=== PATIENT | female | born 1965 | race Hispanic/Latino ===

== ENCOUNTER 2018-09-27 20:28 | Inpatient (IN) | payer MEDICARE, BC ==
[2018-09-27 20:28] VITALS: BMI 24.5
[2018-09-27 21:00] LABS: HCG,QUALITATIVE URINE NEGATIVE (NEGATIVE)
[2018-09-27 21:03] LABS: SQUAMOUS EPITHIAL < 1 /hpf (0-5); URINE BILIRUBIN NEGATIVE (NEGATIVE); URINE BLOOD 1+ (NEGATIVE); URINE CLARITY Clear (Clear); URINE COLOR Straw (YELLOW); URINE GLUCOSE (UA) NORMAL (Normal); URINE LEUKOCYTE ESTERASE NEG Leu/uL (Negative); URINE PROTEIN NEGATIVE (NEGATIVE); URINE UROBILINOGEN NORMAL mg/dL (0.2-1.0)
--- NOTE | 2018-09-27 21:05 | C.PDOC ---
History Of Present Illness 53 year old female presents to the emergency department requesting detox from alcohol, last consumed prior to arrival. Patient denies suicidal/homicidal ideation, and offers no other complaints at this time. Time Seen by Provider: 09/27/18 20:53 Chief Complaint (Nursing): Substance Abuse History Per: Patient History/Exam Limitations: no limitations Onset/Duration Of Symptoms: Hrs Current Symptoms Are (Timing): Still Present Suicide/Self Injury Attempted (Context): None Modifying Factor(s): Alcohol Associated Symptoms: denies: Suicidal Thoughts, Suicidal Plan Past Medical History Reviewed: Historical Data, Nursing Documentation, Vital Signs Vital Signs: Last Vital Signs Temp 98.6 F 09/27/18 20:33 Pulse 65 09/27/18 20:33 Resp 18 09/27/18 20:33 BP 122/85 09/27/18 20:33 Pulse Ox 99 09/27/18 20:33 - Medical History PMH: Depression, Hypothyroidism, Seizures Surgical History: No Surg Hx - [facility] Procedures ASPIRAT CURET-POST DELIV (09/03/00) CYSTOSCOPY NEC (03/18/03) ESOPHAGOGASTRODUODENOSCOPY [EGD] W/CLOSED BIOPSY (03/01/05) LAPAROSCOPIC CHOLECYSTECTOMY (06/11/07) LOCAL EXCIS BREAST LES (04/01/07) MRI OF OTHER AND UNSPECIFIED SITES (02/20/05) RETROGRADE PYELOGRAM (03/18/03) SPINAL CANAL INJECT NEC (03/21/98) Family History: States: No Known Family Hx - Social History Hx Tobacco Use: No Hx Alcohol Use: Yes Hx Substance Use: No - Immunization History Hx Tetanus Toxoid Vaccination: No Hx Influenza Vaccination: Yes Hx Pneumococcal Vaccination: No Review Of Systems Except As Marked, All Systems Reviewed And Found Negative. Psych: Positive for: Other (alcohol abuse) Physical Exam - Physical Exam Appears: Non-toxic, No Acute Distress Skin: Warm, Dry Head: Atraumatic, Normacephalic Eye(s): bilateral: Normal Inspection, PERRL, EOMI Nose: Normal Oral Mucosa: Moist Neck: Normal, Supple Chest: Symmetrical, No Tenderness Cardiovascular: Rhythm Regular, No Murmur Respiratory: Normal Breath Sounds, No Rales, No Rhonchi, No Wheezing Gastrointestinal/Abdominal: Soft, No Tenderness Neurological/Psych: Oriented x3, Normal Speech, Normal Cognition ED Course And Treatment - Laboratory Results Result Diagrams: 09/27/18 21:29 09/27/18 21:29 Lab Results: Urine HCG, Qual Negative (NEGATIVE) 09/27/18 20:57 Urine HCG, Qual Negative (NEGATIVE) 09/27/18 20:57 O2 Sat by Pulse Oximetry: 99 (RA) Pulse Ox Interpretation: Normal Medical Decision Making Medical Decision Making: Plan: Drug Screen HCG Qualitative Urine Urinalysis Assessment: Alcohol abuse Disposition Discussed With Dr.: Qiana Oconnor Doctor Will See Patient In The: Hospital Counseled Patient/Family Regarding: Studies Performed, Diagnosis - Disposition Disposition: HOSPITALIZED Disposition Time: 22:57 Condition: FAIR Forms: [employer] (Hong Konger) - Clinical Impression Clinical Impression: Alcohol abuse - Scribe Statement The provider has reviewed the documentation as recorded by the Scribe (Kike Clifton) Provider Attestation: All medical record entries made by the Scribe were at my direction and personally dictated by me. I have reviewed the chart and agree that the record accurately reflects my personal performance of the history, physical exam, medical decision making, and the department course for this patient. I have also personally directed, reviewed, and agree with the discharge instructions and disposition.
[2018-09-27 21:16] LABS: BARBITURATES, UR NEGATIVE (NEGATIVE); BENZODIAZEPINES, UR NEGATIVE (NEGATIVE); OPIATES, UR NEGATIVE (NEGATIVE); PHENCYCLIDINE, UR NEGATIVE (NEGATIVE)
[2018-09-27 21:34] LABS: BASO % 0.7 % (0.0-2.0); EOS % 0.1 % (0.0-4.0); HEMOGLOBIN 14.6 g/dL (11.0-16.0); LYMPH % 18.3 % (20.0-40.0); MEAN CELL VOLUME 88.5 fL (81.0-99.0); MEAN CORPUSCULAR HEMOGLOBIN 28.6 pg (27.0-31.0); MEAN CORPUSCULAR HGB CONC 32.3 g/dL (33.0-37.0); MEAN PLATELET VOLUME 8.2 fL (7.2-11.7); MONO # 0.5 K/uL (0.0-0.8); MONO % 9.8 % (0.0-10.0); NEUT # 3.8 K/uL (1.8-7.0); NEUT % 71.1 % (50.0-75.0); NRBC % 0.1 % (0.0-2.0); RBC 5.1 Mil/uL (3.80-5.20); RED CELL DISTRIBUTION WIDTH 18.1 % (11.5-14.5); WHITE BLOOD COUNT 5.3 K/uL (4.8-10.8)
[2018-09-27 21:46] LABS: PROTHROMBIN TIME 10.8 SECONDS (9.7-12.2)
[2018-09-27 21:50] LABS: ALB/GLOB RATIO 1.5 (1.0-2.1); ALBUMIN 4.5 g/dL (3.5-5.0); ALT/SGPT 20 U/L (9-52); AST/SGOT 38 U/L (14-36); BLOOD UREA NITROGEN 8 mg/dL (7-17); CALCIUM 9.4 mg/dl (8.6-10.4); GFR NON-AFRICAN AMERICAN > 60
[2018-09-27] MEDS: Potassium Chloride 20 mEq ER Tab PO SCH (23:28)
[2018-09-27] MEDS ORDERED: Potassium Chloride 20 mEq ER Tab PO ONE (23:28)
--- NOTE | 2018-09-28 01:05 | PCM.BM ---
<Freddy Sharpe - Last Filed: 09/28/18 01:03> Treatment Plan Problems - Problems identified on initial assessmt Problem 1 Date Initiated: 09/28/18 Time Initiated: 01:04 Assessment reference: NA Status: Active Priority: 1 Comment: Alcohol abuse Treatment assets and liabiliti Patient Assests: cooperative, ADL independent, good support system Patient Liabilities: substance abuse, medical problems - Milieu Protocol Maintain good personal hygiene: daily Encourage regular showers, daily Remind patient to perform daily oral care Conduct patient checks and document Observation sheet: Q15 minutes Maintain personal safety: every shift Educate patient to report safety concerns to staff, every shift Monitor environment for contraband/sharps Medication safety: Monitor for expected outcome, potential side effects: every shift, Assess barriers to learning: every shift, Assess readiness for medication education: every shift <Connie Muller - Last Filed: 09/30/18 11:46> Family Contact Family contact name: daughter Family contacted how many times per week?: 2 - Goals for Treatment Patient goals for treatment: Complete detox and transition to outpatient therapy program. Discharge/Continuing Care - Education Needs Education Needs: Family Diagnosis/Disease Process, Family Community resources, Patient Medication, Patient Diagnosis/Disease Process, Patient Coping Skills, Patient Anger Management skills, Patient Placement options, Patient Community resources - Discharge Discharge Criteria: No longer exhibiting s/s of withdrawal, Reduction of target symptoms Discharge to:: Home, With Family - Treatment Team Participation Patient/Family/SO Statement: 09/30/18 11:46 "I'll go to outpatient I guess." Discussed with Family/SO: No Was Patient/Family/SO present at Treatment Team Meeting: Yes
[2018-09-28] MEDS: Levothyroxine 125 MCG TAB PO SCH (06:40)
[2018-09-28] MEDS: Potassium Chloride 20 mEq ER Tab PO SCH (09:32)
--- NOTE | 2018-09-28 10:21 | PCM.PSYCH ---
Initial Psychiatric Evaluation - Initial Psychiatric Evaluation Type of Admission: Voluntary Legal Status: Capacity Chief Complaint (in patient's own words): "I am very anxious" History of Present Illness and Precipitating Events: The pt is seen, chart reviewed, case discussed. Her sister is contacted with her permission. She is a 53 y/o single female, living alone, no child She is here for alcohol detox Pt is a poor historian; evasive, secretive and minimizes her condition, i.e. "I only drank 2 days" Her sister reported that the pt had been drinking for many years and had detox and rehab before, last time was at [facility]. She has been drinking more heavily lately and at [facility] [place] [place] her BAL was above 300, and they still "sent her home bc they don't have a detox." Here, too, she scored close to 200 and was withdrawing significantly (P>100) Her sister also said that the pt had been driving while intoxicated, stating she would rather b/c of this ongoing alcohol problem. Pt also admits to being "very anxious" but denies feeling depresed as much, and denies SI. No psychosis or kennedy elicited Past psych hx: No admissions or suicide attempts but she has had depression and anxiety d/o Medical hx: Multiple conditions, whcih are neglected b/c of her alcoholism, such as hypothyroidism, disc problems. Family psych hx: Anxiety Current Medications: Active Medications Generic Name Dose Route Start Last Admin Trade Name Freq PRN Reason Stop Dose Admin Hydroxyzine HCl 50 mg 09/27/18 23:52 Atarax PO Q6H PRN Anxiety Levothyroxine Sodium 125 mcg 09/28/18 06:30 09/28/18 06:40 Synthroid PO 125 mcg DAILY@0630 SHAHAB Administration Lorazepam 1 mg 09/28/18 09:15 09/28/18 09:30 Ativan PO 1 mg Q4 PRN Administration Anxiety Nicotine 1 patch 09/28/18 10:00 09/28/18 09:30 Nicoderm Cq TD 1 patch DAILY SHAHAB Administration Potassium Chloride 40 meq 09/28/18 10:00 09/28/18 09:32 K-Dur 20 Meq Er Tab PO 40 meq DAILY SHAHAB Administration Trazodone HCl 50 mg 09/27/18 23:45 09/28/18 00:13 Desyrel PO 50 mg HS SHAHAB Administration Past Psychiatric History - Past Psychiatric History Previous Treatment History: None Pertinent Medical Hx (Current Medical&Sleep Prob, Allergies): Allergies Allergy/AdvReac Type Severity Reaction Status Date / Time phenol [From Chloraseptic] Allergy Verified 09/27/18 20:40 B12/Levomefolate Calcium/B-6 [Folbic Rf 2 mg-1.13 mg-25 mg] 1 tab PO DAILY 09/02 04/19 Celecoxib 100 mg PO DAILY 09/28/18 Ferrous Sulfate 325 mg PO DAILY 09/28/18 Levothyroxine [Synthroid] 125 mcg PO DAILY 09/28/18 Sumatriptan Succinate 25 mg PO DAILY 09/28/18 Vitamin D3/Vitamin K2 (Mk4) [K2 Plus D3 Tablet] 1 each PO DAILY 09/28/18 hydrOXYzine HCl [Atarax] 25 mg PO Q8H 09/28/18 Review of Systems - Psychiatric Psychiatric: Abnormal Sleep Pattern, Anhedonia, Anxiety, Behavioral Changes, Change in Appetite, Depression, Difficulty Concentrating, Mood Swings, Panic Attacks. absent: Hallucinations, Homicidal Ideation, Paranoia, Suicidal Ideation Mental Status Examination - Personal Presentation Personal Presentation: Looks older than stated age - Affect Affect: Blunted - Motor Activity Motor Activity: Calm - Reliability in Providing Information Reliability in Providing Information: Fair - Speech Speech: Organized - Mood Mood: Depressed, Anxious - Formal Thought Process Formal Thought Process: No Impairment - Cognitive Functions Orientation: Person, Place, Situation Sensorium: Alert Attention/Concentration: Easily distracted Estimate of Intelligence: Average Judgement: Imparied, as evidence by: Poor judgement (minimizing sxs) Memory: Recent intact, as evidence by: Ability to recall events of the day, Remote intact, as evidenced by: Abilit to recall sig. life events - Risk Risk: Withdrawal, Diminished functioning - Strength & Assets Inventory Strength & Assets Inventory: Cooperative - Limitations Limitations: Other DSM 5 DX - DSM 5 DSM 5 Diagnosis: Alcohol withdrawal Alcohol use d/o - severe NELSON Depressive d/o - unspecified - Recommended/Plan of Treatment Treatment Recommendations and Plan of Treatment: Taper with librium Lexapro for NELSON and ddepression Gabapentin for augmentation if needed As needed medications All risks, benefits and alternatives of the meds discussed, and the pt agreed and understood. Attend groups and activities Supportive therapy and psychoeducation WA for abstinence CBT for relapse prevention Encourage MAT Refer to rehab or IOP, and self-help groups Teach healthy lifestyle methods, i.e. diet, exercise, meditation Smoking cessation with WA Nicotine patch if needed 34 min Projected ELOS: 4-5 days Prognosis: good w treatment
[2018-09-29] MEDS: Levothyroxine 125 MCG TAB PO SCH (05:46)
[2018-09-29] MEDS: Potassium Chloride 20 mEq ER Tab PO SCH (09:45)
[2018-09-29] MEDS ORDERED: Albuterol HFA 90 mcg/actuation (8 g) INH PRN ×2 (13:17→13:45)
[2018-09-29] MEDS: guaiFENesin 200 mg/10 ml Syrup UD PO PRN ×3 (13:32→21:03)
[2018-09-29 17:48] LABS: ALB/GLOB RATIO 1.5 (1.0-2.1); ALBUMIN 3.9 g/dL (3.5-5.0); ALT/SGPT 20 U/L (9-52); AST/SGOT 23 U/L (14-36); BLOOD UREA NITROGEN 10 mg/dL (7-17); CALCIUM 8.9 mg/dl (8.6-10.4); GFR NON-AFRICAN AMERICAN > 60
[2018-09-30] MEDS: guaiFENesin 200 mg/10 ml Syrup UD PO PRN ×3 (03:24→14:02)
[2018-09-30] MEDS: Levothyroxine 125 MCG TAB PO SCH (06:14)
--- NOTE | 2018-09-30 13:36 | PCM.PYCHPN ---
Psychiatric Progress Note - Psychiatric Progress Note Patient seen today, length of contact: 16 min Patient Chief Complaint: "I don't want to stay too long here" Problems Identified/Issues Discussed: The pt is seen, chart reviewed, case discussed with staff. The pt is compliant with medications and reports no side-effects. Symptoms are improving but needs more time to stabilize. Still anxious and has low insight - thus high relapse risk WI used to increase her motivation to change. Lexapro started for anxiety d/o Pt attends groups and activities. Support given, psycho-education provided. After care discussed. She is interested in IOP Her sister is in touch with us. Her family is very worried about her quitting detox Medication Change: Yes (detox changes daily) Medical Record Reviewed: Yes Mental Status Examination - Cognitive Function Orientation: Person, Place, Situation Memory: Intact Attention: WNL Concentration: Poor Association: WNL Fund of Knowledge: WNL - Mood Mood: Depressed, Anxious - Affect Affect: Blunted - Speech Speech: Appropriate - Formal Thought Process Formal Thought Process: No Impairment - Suicidal Ideation Suicidal Ideation: No - Homicidal Ideation Homicidal Ideation: No Goal/Treatment Plan - Goal/Treatment Plan Need for Continued Stay: Severe depression anxiety, Discharge may exacerbated symptoms, Severe functional impairment Progress Toward Problem(s) and Goals/Treatment Plan: Taper with librium Lexapro for NELSON and depression Gabapentin for augmentation if needed As needed medications All risks, benefits and alternatives of the meds discussed, and the pt agreed and understood. Attend groups and activities Supportive therapy and psychoeducation WI for abstinence CBT for relapse prevention Encourage MAT Refer to rehab or IOP, and self-help groups Teach healthy lifestyle methods, i.e. diet, exercise, meditation Smoking cessation with WI Nicotine patch if needed
--- NOTE | 2018-09-30 13:38 | PCM.PYCHPN ---
Psychiatric Progress Note - Psychiatric Progress Note Patient seen today, length of contact: 17 min Patient Chief Complaint: "I'm not well" Problems Identified/Issues Discussed: The pt is seen, chart reviewed, case discussed with staff. Support and psychoeducation given, CBT and AR used briefly No new symptoms reported, improving slowly and needs more time No SEs from medications, risks discussed. After care discussed Medication Change: Yes (detox changes daily) Medical Record Reviewed: Yes Mental Status Examination - Cognitive Function Orientation: Person, Place, Situation Memory: Intact Attention: WNL Concentration: Poor Association: WNL Fund of Knowledge: WNL - Mood Mood: Depressed, Anxious - Affect Affect: Blunted - Speech Speech: Appropriate - Formal Thought Process Formal Thought Process: No Impairment - Suicidal Ideation Suicidal Ideation: No - Homicidal Ideation Homicidal Ideation: No Goal/Treatment Plan - Goal/Treatment Plan Need for Continued Stay: Severe depression anxiety, Discharge may exacerbated symptoms, Severe functional impairment Progress Toward Problem(s) and Goals/Treatment Plan: Taper with librium Lexapro for NELSON and depression Gabapentin for augmentation if needed As needed medications All risks, benefits and alternatives of the meds discussed, and the pt agreed and understood. Attend groups and activities Supportive therapy and psychoeducation AR for abstinence CBT for relapse prevention Encourage MAT Refer to rehab or IOP, and self-help groups Teach healthy lifestyle methods, i.e. diet, exercise, meditation Smoking cessation with AR Nicotine patch if needed
[2018-09-30 17:42] LABS: FREE T4 1.34 ng/dL (0.78-2.19)
[2018-09-30] MEDS ORDERED: Aluminum Hydroxide/Magnesium Hydroxide Susp (30 mL) PO PRN (18:27)
[2018-10-01] MEDS: Levothyroxine 125 MCG TAB PO SCH (06:10)
[2018-10-01 06:34] VITALS: RESP 18
[2018-10-01] MEDS: guaiFENesin 200 mg/10 ml Syrup UD PO PRN (09:51)
--- NOTE | 2018-10-01 11:51 | PCM.PYCHPN ---
Psychiatric Progress Note - Psychiatric Progress Note Patient seen today, length of contact: 18 min Patient Chief Complaint: "I have a cold, but im feeling better" Problems Identified/Issues Discussed: The pt is seen, chart reviewed, case discussed with staff. Patient states that her vomiting stopped and the medication helped. She states that she measured her pulse high this afternoon and that she feels chest pain today. Support and psychoeducation given, CBT and GA used briefly No new symptoms reported, improving slowly and needs more time No SEs from medications, risks discussed. After care discussed Medication Change: Yes (detox changes daily) Medical Record Reviewed: Yes Mental Status Examination - Cognitive Function Orientation: Person, Place, Situation, Time Memory: Intact Attention: WNL Concentration: WNL Association: WNL Fund of Knowledge: WNL - Mood Mood: Depressed, Anxious - Affect Affect: Blunted - Speech Speech: Appropriate - Formal Thought Process Formal Thought Process: No Impairment - Suicidal Ideation Suicidal Ideation: No - Homicidal Ideation Homicidal Ideation: No Goal/Treatment Plan - Goal/Treatment Plan Need for Continued Stay: Severe depression anxiety, Discharge may exacerbated symptoms, Severe functional impairment Progress Toward Problem(s) and Goals/Treatment Plan: Taper with librium continue Lexapro for NELSON and depression Gabapentin for augmentation if needed As needed medications All risks, benefits and alternatives of the meds discussed, and the pt agreed and understood. Attend groups and activities Supportive therapy and psychoeducation GA for abstinence CBT for relapse prevention Encourage MAT Refer to rehab or IOP, and self-help groups Teach healthy lifestyle methods, i.e. diet, exercise, meditation Smoking cessation with GA Nicotine patch if needed - Smoking Cessation Smoking Cessation Initiated: Yes
[2018-10-02] MEDS: Levothyroxine 125 MCG TAB PO SCH (06:59)
[2018-10-02] MEDS: guaiFENesin 200 mg/10 ml Syrup UD PO PRN (08:14)
--- NOTE | 2018-10-02 08:16 | PCM.PYCHDC ---
Mental Status Examination - Mental Status Examination Orientation: Person Discharge Summary - Discharge Note Consultations:: List each consultation separately and include: 1. Reason for request. 2. Findings. 3. Follow-up Summary of Hospital Course include:: 1. Description of specific treatment plan utilized for patients during their course of treatmen. 2. Summarize the time- course for resolution of acute symptoms and/or regressed behaviors. 3. Describe issues identified and worked on during hospitalization. 4. Describe medication utilized. 5. Describe medical problems identified and treated. 6. Reassessment of suicide risk Summary of Hospital Course: On admission: The pt is seen, chart reviewed, case discussed. Her sister is contacted with her permission. She is a 53 y/o single female, living alone, no child She is here for alcohol detox Pt is a poor historian; evasive, secretive and minimizes her condition, i.e. "I only drank 2 days" Her sister reported that the pt had been drinking for many years and had detox and rehab before, last time was at [facility]. She has been drinking more heavily lately and at [facility] [place] her BAL was above 300, and they still "sent her home bc they don't have a detox." Here, too, she scored close to 200 and was withdrawing significantly (P>100) Her sister also said that the pt had been driving while intoxicated, stating she would rather b/c of this ongoing alcohol problem. Pt also admits to being "very anxious" but denies feeling depresed as much, and denies SI. No psychosis or kennedy elicited Past psych hx: No admissions or suicide attempts but she has had depression and anxiety d/o Medical hx: Multiple conditions, whcih are neglected b/c of her alcoholism, such as hypothyroidism, disc problems. Family psych hx: Anxiety Hospital course: The pt was admitted and started on treatment with psychotherapy, support, psychoeducation and medications. All the risks and benefits of medications are discussed and the patient understood and agreed. MS and CBT used. The pt attended groups and activities, as well as milieu therapy. The pt improved with the treatments provided. After care discussed with the patient. She will go to [facility]. - Final Diagnosis (DSM 5) Condition upon Discharge: IMPROVED Disposition: HOME/ ROUTINE Follow-up Treatment Plan: Continue below medications after discharge. Follow after care plan as discussed. Use relapse prevention skills Return to ER or call 911 if suicidal, homicidal or symptoms relapse. Stay away from stress, alcohol and drugs. See primary doctor regularly and get labs. Prescriptions/Medication Reconciliation: Albuterol HFA [Ventolin HFA 90 mcg/actuation (8 g)] 2 puff INH RQ4 PRN #1 inhaler PRN Reason: Shortness Of Breath Escitalopram [Lexapro] 10 mg PO DAILY #30 tab Gabapentin [Neurontin] 100 mg PO TID #90 cap Levothyroxine [Synthroid] 125 mcg PO DAILY@0630 #30 tab Naltrexone [Revia] 50 mg PO DAILY #30 tab traZODone [Desyrel] 100 mg PO HS #30 tab
[2018-10-02 09:09] VITALS: BP 92/67; PULSE 108; TEMP 97.7; O2SAT 97
--- NOTE | 2018-10-02 19:14 | CARD ---
APPROVED REPORT Date of service: 10/01/2018 EKG Measurement Heart [id number] <Conclusion> Normal sinus rhythm Anterolateral infarct, age undetermined Abnormal ECG
== END 2018-10-02 09:45 | disposition home or self-care (01) | DRG 897 ==
LOC: C.ER 20:28 → C.7D 22:57
PROVIDERS: ADMIT Psychiatry & Neurology Psychiatry; ATTEND Psychiatry & Neurology Psychiatry
PROC: HZ2ZZZZ Detoxification Services for Substance Abuse Treatment (ICD-10-PCS; principal; 2018-09-27)
PROC: GZ56ZZZ Individual Psychotherapy, Supportive (ICD-10-PCS; 2018-09-27)
DX: F10.230 Alcohol dependence with withdrawal, uncomplicated (principal); Y90.6 Blood alcohol level of 120-199 mg/100 ml; F17.200 Nicotine dependence, unspecified, uncomplicated; F32.9 Major depressive disorder, single episode, unspecified; E03.9 Hypothyroidism, unspecified; F41.9 Anxiety disorder, unspecified